=== PATIENT | female | born 1950 | race Two or more races ===

== ENCOUNTER 2020-09-11 04:50 | Inpatient (IN) | payer OTHER ==
[~2020-09-11] VITALS: Ht 154.9 cm; Wt 61.7 kg
[~2020-09-11 04:50] MED LIST: ATACAND32 MG PO; CARDIZEM120 MG PO; GABAPE PO; LIPIT PO; PROTONIX20 MG PO; SYNTHROID75 MCG PO; ZANAF PO
[2020-09-11] MEDS ORDERED: ZOFRAN8 MG PO (07:31)
[2020-09-11] MEDS ORDERED: COLACE100 MG PO (07:32)
[2020-09-11] MEDS ORDERED: DIAZEPAM5 MG PO (07:32)
[2020-09-11] MEDS ORDERED: MEDROLPACK PO (07:32)
[2020-09-11] MEDS ORDERED: NEURONTIN800 MG PO (07:32)
[2020-09-11] MEDS ORDERED: ACETAMINOPHEN-1 EAC2 PO (07:32)
[2020-09-11] MEDS ORDERED: AMOX-CLAV 875-1 EAC1 PO (07:32)
== END 2020-09-12 15:55 | disposition home or self-care (01) | DRG 460 ==
LOC: CIR.AMB 04:50 → PED 10:06 → O/R 10:06 → CIR.AMB 11:30 → PED 13:37
PROVIDERS: ADMIT Orthopaedic Surgery Orthopaedic Surgery of the Spine; ATTEND Orthopaedic Surgery Orthopaedic Surgery of the Spine
PROC: 07DR0ZZ Extraction of Iliac Bone Marrow, Open Approach (ICD-10-PCS; 2020-09-11)
PROC: 0SG00A0 Fusion of Lumbar Vertebral Joint with Interbody Fusion Device, Anterior Approach, Anterior Column, Open Approach (ICD-10-PCS; principal; 2020-09-11 07:00)
DX: M43.16 Spondylolisthesis, lumbar region (principal); M48.062 Spinal stenosis, lumbar region with neurogenic claudication